=== PATIENT | male | born 1960 | race Caucasian/White ===

== ENCOUNTER 2023-10-10 19:06 | Inpatient (IN) | payer OTHER ==
[2023-10-10 19:10] VITALS: RESP 18; BMI 26.3
[2023-10-10] MEDS ORDERED: VANCOMYCIN 1,000 MG in DEXTROSE 5%-WATER - 250 ML IVPB ONE (20:55)
[2023-10-10] MEDS ORDERED: CEFEPIME HCL 1 GM VIAL (RESTRICTED TO ID) IVPB ONE (20:56)
[2023-10-10] MEDS ORDERED: ACETAMINOPHEN 1000 MG/100 ML BAG IVPB ONE (20:56)
[2023-10-10] MEDS ORDERED: ACETAMINOPHEN 1000 MG/100 ML BAG IVPB PRN (22:15)
[2023-10-10] MEDS ORDERED: DOCUSATE SODIUM 100 MG CAPSULE (FP) PO PRN (22:16)
[2023-10-10] MEDS ORDERED: CEFEPIME 1 GM/100 ML BAG IVPB ONE (22:17)
[2023-10-10] MEDS ORDERED: VANCOMYCIN 1 GRAM (PRE-DOCKED) 1,000 MG/250 ML BAG IVPB ONE (22:17)
[2023-10-10 22:22] LABS: EOS % 4.9 % (0-4.5); HEMATOCRIT 32.8 % (35.4-49); HEMOGLOBIN 11.2 GM/dL (11.7-16.9); MCH 30.4 pg (25.7-33.7); MCHC 34.2 g/dl (32.0-35.9); MEAN CELL VOLUME 88.8 fl (80-96); MONO % 8.3 % (3.8-10.2); NEUT % 44.8 % (42.8-82.8); PLATELET COUNT 396 10^3/uL (134-434); RBC 3.69 M/mm3 (4.00-5.60); WHITE BLOOD COUNT 6.1 K/mm3 (4.0-10.0)
[2023-10-10] MEDS ORDERED: ACETAMINOPHEN INJECTION 100 ML IVPB ONE (22:35)
[2023-10-10 22:36] LABS: POTASSIUM 4.1 mmol/L (3.5-5.1)
[2023-10-10 22:38] LABS: CALCIUM 7.4 mg/dL (8.5-10.1)
[2023-10-10 22:39] LABS: BLOOD UREA NITROGEN 23.4 mg/dL (7-18)
[2023-10-10 22:43] LABS: CREATININE 1.4 mg/dL (0.55-1.3)
[2023-10-10 22:45] LABS: BILIRUBIN,TOTAL 0.2 mg/dL (0.2-1); TOT PROT 5.1 g/dl (6.4-8.2)
[2023-10-10 23:05] LABS: ANISOCYTOSIS 2+; MACROCYTOSIS 1+; OVALOCYTE 1+; TARGET CELLS 1+
[2023-10-10 23:10] LABS: PLATELET ESTIMATE ADEQUATE
[2023-10-10 23:12] LABS: ERYTHROCYTE SEDIMENTATION RATE 49 mm/hr (0-20)
[2023-10-10 23:38] LABS: MAGNESIUM 1.9 mg/dL (1.8-2.4)
[2023-10-10 23:41] LABS: PHOSPHOROUS 3.9 mg/dL (2.5-4.9)
[2023-10-11] MEDS ORDERED: DEXTROSE 50%-WATER 25 GM/50 ML DISP.SYRIN ONE (00:29)
[2023-10-11] MEDS ORDERED: DEXTROSE 50%-WATER - 25 GM/50 ML VIAL IVPUSH ONE (00:40)
[2023-10-11] MEDS ORDERED: ONDANSETRON 4 MG TABLET PO PRN (01:00)
[2023-10-11] MEDS: HYDROCORTISONE 5 MG TABLET PO SCH ×3 (01:01→21:33)
[2023-10-11] MEDS ORDERED: ONDANSETRON *ODT* 4 MG TABLET SL PRN (05:44)
[2023-10-11] MEDS ORDERED: CEFEPIME HCL 1 GM VIAL (RESTRICTED TO ID) IVPB SCH (06:00)
[2023-10-11] MEDS: CEFEPIME 1 GM in DEXTROSE 5%-WATER 100 ML IVPB SCH ×2 (06:32→11:15)
[2023-10-11] MEDS: INSULIN SLIDING SCALE (NOVOLOG) 1 VIAL SQ SCH ×4 (06:39→21:33)
[2023-10-11] MEDS: DEXTROSE 5%-NORMAL SALINE 1,000 ML IV SCH (07:45)
[2023-10-11] MEDS ORDERED: VANCOMYCIN/WATER FOR INJ (PEG) 1,000 MG/200 ML BAG IVPB SCH (08:00)
[2023-10-11] MEDS ORDERED: VANCOMYCIN 1,000 MG in DEXTROSE 5%-WATER - 250 ML IVPB SCH (08:00)
[2023-10-11 09:28] LABS: BASO % 1.1 % (0-2.0); EOS % 4.6 % (0-4.5); HEMATOCRIT 32.1 % (35.4-49); LYMPH % 38.7 % (8-40); MCH 30.4 pg (25.7-33.7); MCHC 34.2 g/dl (32.0-35.9); MEAN CELL VOLUME 88.8 fl (80-96); MEAN PLT VOLUME 7.4 fl (7.5-11.1); MONO % 8.3 % (3.8-10.2); NEUT % 47.3 % (42.8-82.8); PLATELET COUNT 394 10^3/uL (134-434); RBC 3.62 M/mm3 (4.00-5.60); WHITE BLOOD COUNT 4.9 K/mm3 (4.0-10.0)
[2023-10-11 09:57] LABS: POTASSIUM 4.6 mmol/L (3.5-5.1)
[2023-10-11 09:58] LABS: BLOOD UREA NITROGEN 19.8 mg/dL (7-18)
[2023-10-11 10:01] LABS: CREATININE 1.1 mg/dL (0.55-1.3)
[2023-10-11] MEDS: FINASTERIDE 5 MG TABLET (FP) PO SCH (10:11)
[2023-10-11] MEDS: ASPIRIN COATED 81 MG TABLET.EC PO SCH (10:11)
[2023-10-11] MEDS: TAMSULOSIN HCL 0.4 MG CAP PO SCH (10:14)
[2023-10-11] MEDS: TRIAMCINOLONE ACET 0.025% CREAM 15 GM TUBE TP SCH ×2 (10:15→21:34)
[2023-10-11] MEDS: amLODIPine BESYLATE 5 MG TABLET (FP) PO SCH (10:17)
[2023-10-11 11:45] LABS: URIC ACID 6.4 mg/dL (2.6-7.2)
[2023-10-11] MEDS: INSULIN (LEVEMIR) 100 UNITS/ML UNITS SQ SCH (21:32)
[2023-10-11] MEDS ORDERED: PATIENT'S OWN MEDICATION (NON-FORMULARY) (Insulin Glargine,Hum.Rec.Anlog [Insulin Glargine SQ SCH (22:00)
[2023-10-11] MEDS ORDERED: ACETAMINOPHEN 325 MG TABLET (FP) PO PRN (22:16)
[2023-10-12] MEDS: DEXTROSE 5%-NORMAL SALINE 1,000 ML IV SCH (05:55)
[2023-10-12] MEDS: INSULIN SLIDING SCALE (NOVOLOG) 1 VIAL SQ SCH ×4 (06:50→22:26)
[2023-10-12] MEDS ORDERED: INSULIN (LEVEMIR) 100 UNITS/ML UNITS SQ ONE (07:01)
[2023-10-12] MEDS: ASPIRIN COATED 81 MG TABLET.EC PO SCH (09:19)
[2023-10-12] MEDS: TAMSULOSIN HCL 0.4 MG CAP PO SCH (09:19)
[2023-10-12] MEDS: FINASTERIDE 5 MG TABLET (FP) PO SCH (09:19)
[2023-10-12] MEDS: HYDROCORTISONE 5 MG TABLET PO SCH ×2 (09:20→22:25)
[2023-10-12] MEDS: amLODIPine BESYLATE 5 MG TABLET (FP) PO SCH (09:20)
[2023-10-12] MEDS: PANTOPRAZOLE 40 MG TABLET PO SCH (09:20)
[2023-10-12] MEDS: TRIAMCINOLONE ACET 0.025% CREAM 15 GM TUBE TP SCH ×2 (09:20→22:30)
[2023-10-12] MEDS ORDERED: PATIENT'S OWN MEDICATION (NON-FORMULARY) (Omeprazole 20 MG Capsule.Dr) PO SCH (10:00)
[2023-10-12] MEDS ORDERED: INSULIN SLIDING SCALE (NOVOLOG) 1 VIAL SQ ONE (11:01)
[2023-10-12] MEDS: CEFAZOLIN 1 GM in DEXTROSE 5%-WATER - 50 ML IVPB SCH ×2 (12:22→17:00)
[2023-10-12] MEDS: INSULIN (LEVEMIR) 100 UNITS/ML UNITS SQ SCH (22:26)
[2023-10-13] MEDS: DEXTROSE 5%-NORMAL SALINE 1,000 ML IV SCH ×3 (00:05→15:35)
[2023-10-13] MEDS: CEFAZOLIN 1 GM in DEXTROSE 5%-WATER - 50 ML IVPB SCH ×3 (01:44→17:19)
[2023-10-13] MEDS: INSULIN SLIDING SCALE (NOVOLOG) 1 VIAL SQ SCH ×3 (06:41→17:17)
[2023-10-13] MEDS: FINASTERIDE 5 MG TABLET (FP) PO SCH (11:56)
[2023-10-13] MEDS: amLODIPine BESYLATE 5 MG TABLET (FP) PO SCH (11:57)
[2023-10-13] MEDS: TAMSULOSIN HCL 0.4 MG CAP PO SCH (11:57)
[2023-10-13] MEDS: HYDROCORTISONE 5 MG TABLET PO SCH (11:57)
[2023-10-13] MEDS: PANTOPRAZOLE 40 MG TABLET PO SCH (11:57)
[2023-10-13] MEDS: ASPIRIN COATED 81 MG TABLET.EC PO SCH (11:57)
[2023-10-13] MEDS: TRIAMCINOLONE ACET 0.025% CREAM 15 GM TUBE TP SCH (11:59)
[2023-10-13 13:51] VITALS: BP 148/66; PULSE 71; TEMP 98.8
== END 2023-10-13 19:30 | disposition home or self-care (01) | DRG 603 ==
LOC: JERFT 19:06 → JERBED 22:04 → J6S 10-11 02:14 → OBSVTOIN 10-13 10:19 → J6S 10-13 12:36
PROVIDERS: ADMIT Internal Medicine; ATTEND Family Medicine
DX: L03.116 Cellulitis of left lower limb (principal); C64.1 Malignant neoplasm of right kidney, except renal pelvis; L97.528 Non-pressure chronic ulcer of other part of left foot with other specified severity; N17.9 Acute kidney failure, unspecified; E11.621 Type 2 diabetes mellitus with foot ulcer; I10 Essential (primary) hypertension; L08.89 Other specified local infections of the skin and subcutaneous tissue; E78.5 Hyperlipidemia, unspecified; E03.9 Hypothyroidism, unspecified; N40.0 Benign prostatic hyperplasia without lower urinary tract symptoms; Z90.5 Acquired absence of kidney
CPT/HCPCS: 36415; 73630-TC-LT; 80048; 80053; 82962; 83735; 84100; 84443; 84550; 85025; 85651; 86140; 87040; 93005; 93010; 99285-25; G0378